=== PATIENT | male | born 1960 | race Caucasian/White ===

== ENCOUNTER 2022-12-08 06:40 | Emergency (ER) | payer OTHER ==
[2022-12-08] MEDS ORDERED: Diphtheria,Pertussis(Acell),Tetanus Vaccine 0.5 ML Syringe IM ONE (06:54)
[2022-12-08] MEDS ORDERED: Lidocaine 1% 5 ML VIAL INJECT ONE (06:54)
[2022-12-08] MEDS ORDERED: Bacitracin Oint 1 GM U/D Packet TOP ONE (06:54)
== END 2022-12-08 07:48 | disposition home or self-care (01) ==
LOC: JP.ED 06:40
DX: S61.411A Laceration without foreign body of right hand, initial encounter (principal); Z79.82 Long term (current) use of aspirin; Z23 Encounter for immunization; W26.0XXA Contact with knife, initial encounter
CPT/HCPCS: 12001; 90471; 99282; 99282-25